=== PATIENT | female | born 2000 | race Caucasian/White ===

== ENCOUNTER 2022-10-19 16:24 | Emergency (ER) | payer BC ==
[2022-10-19 16:57] LABS: #Eosinphils 0.1 thou/uL (0.0-0.7); #Lymphocytes 1.8 thou/uL (1.20-3.40); #Monocytes 0.6 thou/uL (0.11-0.59); #Neutrophils 6.1 thou/uL (1.40-6.50); %Basophils 0.4 % (0.0-1.0); %Eosinophils 0.9 % (0.0-10.0); %Lymphocytes 21.2 % (21.0-51.0); %Neutrophils 70.5 % (42.0-75.0); Mean Corpuscular HGB CONC 33.2 g/dL (32.0-36.0); Mean Corpuscular Hemoglobin 29.2 pg (27.0-31.0); Mean Corpuscular Volume 87.9 fl (78.0-98.0); Mean Platelet Volume 7.3 fL (7.4-10.4); Platelet Count 350 10x3/uL (130-400); RBC Distribution Width 11.7 % (11.5-14.5); Red Blood Cell (RBC) Count 4.45 mill/uL (4.20-5.40); White Blood Cell (WBC) Count 8.7 10x3/uL (4.8-10.8)
[2022-10-19 17:10] LABS: BHCG - Serum Negative (NEGATIVE); Pregs Control Background? CLEAR/WHITE (CLR/WHITE); Pregs Control Bar Appear? YES (CONTROL BAR)
[2022-10-19 17:20] LABS: ALT (SGPT) 13 U/L (8-55); AST (SGOT) 19 U/L (5-34); Acetaminophen Less than 10.0 mcg/mL (10.0-30.0); Albumin 4.4 g/dL (3.5-5.0); Alcohol Less than 10 mg/dL (Less than 10); Alkaline Phosphatase 51 U/L (40-110); Anion Gap 12 mmol/L (10-20); BUN (Urea Nitrogen) 14 mg/dL (7.0-18.7); Bilirubin, Total 0.6 mg/dL (0.2-1.2); Calc. Creatinine Clearance 0 mL/min (70-130); Calcium 9.6 mg/dL (7.8-10.44); Carbon Dioxide 24 mmol/L (22-29); Chloride 106 mmol/L (98-107); Estimated GFR 107; Globulin 2.9 g/dL (2.4-3.5); Glucose 81 mg/dL (70-105); Potassium 3.9 mmol/L (3.5-5.1); Protein, Total 7.3 g/dL (6.0-8.3); Salicylate Less than 8.0 mg/dL (15.0-30.0); Sodium 138 mmol/L (136-145)
[2022-10-19] MEDS ORDERED: Lorazepam 1 MG TAB ONE (18:27)
[2022-10-19 19:32] LABS: Bilirubin Negative (Negative); Blood, Urine Negative (Negative); Clarity Clear (Clear); Glucose, Urine (Dipstick) Normal (Negative); Ketone, Urine Negative (Negative); Leukocyte Negative Leu/uL (Negative); Nitrite Negative (Negative); Protein, Urine (Dipstick) Negative (Neg-Trace); Specific Gravity, Urine 1.012 (1.002-1.036); Urobilinogen Normal mg/dL (Less than 2); pH, Urine 7.5 (5.0-9.0)
== END 2022-10-19 19:45 | disposition home or self-care (01) ==
LOC: ERS 16:24
DX: R41.1 Anterograde amnesia (principal)
CPT/HCPCS: 36415; 71045; 80307; 81003; 83735; 84443; 84484; 84703; 85025; 93005; 94760

== ENCOUNTER 2022-12-09 12:51 | Emergency (ER) | payer BC ==
[2022-12-09] MEDS ORDERED: Prochlorperazine 10 MG/2 ML VIAL IVP SCH (14:15)
[2022-12-09] MEDS ORDERED: Dexamethasone 4 MG TAB ONE (15:39)
[2022-12-09] MEDS ORDERED: Magnesium 2 GM/50 ML BAG (IN WATER) ONE (15:41)
[2022-12-09] MEDS ORDERED: Ondansetron ODT 4 MG TAB ONE (17:44)
== END 2022-12-09 18:24 | disposition home or self-care (01) ==
LOC: ERS 12:51
DX: R51.9 Headache, unspecified (principal); R11.0 Nausea
CPT/HCPCS: 93005; 96365; 96375; J0780; J3475; J8540; Q0162

== ENCOUNTER 2023-01-06 19:14 | Emergency (ER) | payer BC ==
[2023-01-06] MEDS ORDERED: Dexameth. Sod Phosp. 10 MG/ML (CHEMO USE ONLY) ONE (20:22)
== END 2023-01-06 20:25 | disposition home or self-care (01) ==
LOC: ERS 19:14
DX: J02.9 Acute pharyngitis, unspecified (principal); F45.8 Other somatoform disorders
CPT/HCPCS: 99283; J1100